=== PATIENT | female | born 1945 ===

== ENCOUNTER 2024-11-20 06:00 | Outpatient (CLI) | payer OTHER ==
[~2024-11-20] VITALS: Ht 160 cm; Wt 88.9 kg
[2024-11-20 11:09] VITALS: BP 150/82
[2024-11-20] MEDS ORDERED: COZAAR100 MG PO (11:10)
[2024-11-20] MEDS ORDERED: LIPITOR40 MG PO (11:10)
[2024-11-20] MEDS ORDERED: TOPROL XL25 M1 (11:11)
[2024-11-20 13:07] LABS: RH POSITIVE
== END 2024-11-20 06:01 | disposition home or self-care (01) ==
LOC: LAB 06:00 → SURH 11-27 07:00 → EDSTATUS 11-27 10:30
PROVIDERS: ATTEND Orthopaedic Surgery Sports Medicine
DX: M17.11 Unilateral primary osteoarthritis, right knee (principal)

== ENCOUNTER 2025-02-05 08:00 | Inpatient (IN) | payer OTHER ==
[~2025-02-05] VITALS: Ht 160 cm; Wt 90.7 kg
[~2025-02-05 08:00] MED LIST: COZAAR100 MG PO; LIPITOR40 MG PO; TOPROL XL25 M1
[2025-02-05 09:11] VITALS: BP 135/80
[2025-02-05 09:13] LABS: HEMATOCRIT 37.7 % (36.0-45.00); HEMOGLOBIN 12.5 g/dL (12.0-15.00); MEAN CELL VOLUME 91.7 fL (80.00-100.00); MEAN CORPUSCULAR HEMOGLOBIN 30.4 pg (27.00-32.0); MEAN CORPUSCULAR HGB CONC 33.2 g/dl (32.0-36.0); PLATELET COUNT 217 K/uL (150-450); RED BLOOD COUNT 4.11 M/uL (4.00-6.00); RED CELL DISTRIBUTION WIDTH 14.1 % (11.5-14.5)
[2025-02-05 09:15] LABS: URINE APPEARANCE Clear; URINE BILIRRUBIN Negative (NEGATIVE); URINE BLOOD Negative; URINE COLOR Yellow; URINE GLUCOSE Negative (NEGATIVE); URINE KETONE Negative (NEGATIVE); URINE LEUKOCYTE Negative; URINE NITRATE Negative; URINE PROTEIN Negative (NEGATIVE); URINE UROBILINOGEN 0.2 E.U./dl
[2025-02-05 09:16] LABS: URINE BACTERIA 659.7 uL (0.0-1933); URINE EPITHELIAL CELLS 52.8 uL (0.0-38.8); URINE RBC 4.1 uL (0.0-20.8); URINE WBC 3.1 uL (0.0-23.2)
[2025-02-05 09:30] LABS: URINE CAST 0.14 uL (0.0-1.40)
[2025-02-05 09:33] LABS: COVID-19 AG NEGATIVE (NEGATIVE)
[2025-02-05 10:06] LABS: BILIRUBIN TOTAL 0.58 mg/dL (0.3-1.2); CREATININE SERUM 0.85 mg/dL (0.55-1.02); GFR 64.68; GLOBULINA 3.3 G/DL (2.4-3.5); POTASSIUM 4.3 mEq/L (3.5-5.1); TOTAL PROTEIN 7.3 gm/dL (6.4-8.2)
[2025-02-05 10:29] LABS: INR 0.95; PARTIAL THROMBOPLASTIN TIME 23.9 SECONDS (22.0-34.0); PROTHROMBIN TIME 10.4 SECONDS (9.0-11.5)
[2025-02-05 11:52] LABS: RH POSITIVE
[2025-02-12] MEDS ORDERED: VANCOMYCIN HCL 1,000 MG VIAL ONE (09:00)
[2025-02-12] MEDS ORDERED: CEFAZOLIN SODIUM 1,000 MG VIAL ONE (09:01)
[2025-02-12] MEDS ORDERED: TRANEXAMIC ACID 100MG/1ML (1000MG) AMPUL IV ONE ×3 (09:01→10:45)
[2025-02-12] MEDS ORDERED: MORPHINE SULFATE 4 MG/ML VIAL IV ONE ×2 (10:45→15:30)
[2025-02-12] MEDS ORDERED: CEFAZOLIN SODIUM 1,000 MG VIAL IV ONE (10:45)
[2025-02-12] MEDS ORDERED: KETOROLAC TROMETHAMINE 60 MG VIAL IM ONE ×2 (10:45→11:06)
[2025-02-12] MEDS ORDERED: BUPIVACAINE HCL/MPF 0.5% 30ML VIAL ONE (11:06)
[2025-02-12] MEDS ORDERED: LIDOCAINE HCL 1%/EPINEPHRINE 20ML VIAL IJ ONE (11:06)
[2025-02-12] MEDS ORDERED: MORPHINE SULFATE 4 MG/ML CARTRIDGE IV PRN (13:15)
[2025-02-12] MEDS ORDERED: ONDANSETRON HCL 2 MG/ML VIAL IV PRN (13:15)
[2025-02-12] MEDS ORDERED: SODIUM CHLORIDE 0.45 % 1,000 ML IV SCH (13:15)
[2025-02-12] MEDS ORDERED: MORPHINE SULFATE 2 MG/ML CARTRIDGE IV ONE (13:15)
[2025-02-12 15:10] LABS: HEMATOCRIT 37.8 % (36.0-45.00); HEMOGLOBIN 12.7 g/dL (12.0-15.00); RED BLOOD COUNT 4.19 M/uL (4.00-6.00)
[2025-02-12] MEDS ORDERED: GENTAMICIN SULFATE 40 MG/ML VIAL ONE (16:29)
[2025-02-12] MEDS ORDERED: GENTAMICIN SULFATE 40 MG/ML VIAL IV SCH (17:00)
[2025-02-12] MEDS ORDERED: CEFAZOLIN SODIUM 1,000 MG VIAL IV SCH (18:00)
[2025-02-12 18:16] VITALS: BP 132/67; O2SAT 96
[2025-02-13 01:10] VITALS: BP 129/65; O2SAT 98
[2025-02-13 06:52] LABS: HEMATOCRIT 33.7 % (36.0-45.00); HEMOGLOBIN 11.2 g/dL (12.0-15.00); MEAN CELL VOLUME 91.7 fL (80.00-100.00); MEAN CORPUSCULAR HEMOGLOBIN 30.4 pg (27.00-32.0); MEAN CORPUSCULAR HGB CONC 33.1 g/dl (32.0-36.0); PLATELET COUNT 198 K/uL (150-450); RED BLOOD COUNT 3.67 M/uL (4.00-6.00); RED CELL DISTRIBUTION WIDTH 13.5 % (11.5-14.5)
[2025-02-13] MEDS ORDERED: ACETAMINOPHEN WITH CODEINE 1 UDTAB TABLET PO PRN (07:45)
[2025-02-13 08:00] VITALS: BP 126/78; O2SAT 98
[2025-02-13] MEDS ORDERED: METOPROLOL SUCCINATE 25 MG TAB.SR.24H PO SCH (09:00)
[2025-02-13] MEDS ORDERED: BACITRACIN 28.35 GM OINT.TUBE TOP SCH (09:00)
[2025-02-13] MEDS ORDERED: LOSARTAN POTASSIUM 100 MG TABLET PO SCH (09:00)
[2025-02-13] MEDS ORDERED: IRON FUM,PS/FOLIC/BCOMP,C NO.9 1 CAP CAPSULE PO SCH (09:00)
[2025-02-13] MEDS ORDERED: SENNA/DOCUSATE SODIUM 1 TAB TABLET PO SCH (09:00)
[2025-02-13] MEDS ORDERED: RIVAROXABAN 10 MG TAB PO SCH (09:00)
[2025-02-13 12:13] LABS: COVID-19 AG NEGATIVE (NEGATIVE)
[2025-02-13 16:00] VITALS: BP 160/80; O2SAT 97
[2025-02-14 00:56] VITALS: BP 151/76; O2SAT 100
[2025-02-14] MEDS ORDERED: INTEGRA PLUS C1 EACH PO (06:29)
[2025-02-14] MEDS ORDERED: Septra Ds Tablet PO (06:29)
[2025-02-14] MEDS ORDERED: XARELTO10 MG PO (06:29)
[2025-02-14] MEDS ORDERED: ACETAMINOPHEN-1 EAC2 PO (06:30)
[2025-02-14 08:00] LABS: HEMATOCRIT 33.3 % (36.0-45.00); MEAN CELL VOLUME 90.8 fL (80.00-100.00); MEAN CORPUSCULAR HEMOGLOBIN 30.1 pg (27.00-32.0); MEAN CORPUSCULAR HGB CONC 33.1 g/dl (32.0-36.0); PLATELET COUNT 196 K/uL (150-450); RED BLOOD COUNT 3.67 M/uL (4.00-6.00); RED CELL DISTRIBUTION WIDTH 13.6 % (11.5-14.5)
[2025-02-14] MEDS ORDERED: SULFAMETHOXAZOLE/TRIMETHOPRIM DS 1 TAB PO SCH (09:00)
[2025-02-14 14:55] VITALS: BP 171/92; O2SAT 96
[2025-02-14 16:00] VITALS: BP 136/82; O2SAT 96
== END 2025-02-14 17:42 | disposition home or self-care (01) | DRG 470 ==
LOC: SURH 02-12 05:36 → O/R 02-12 05:36 → SURH 02-12 08:00
PROVIDERS: ADMIT Orthopaedic Surgery Sports Medicine; ATTEND Orthopaedic Surgery Sports Medicine
PROC: 0SRC0J9 Replacement of Right Knee Joint with Synthetic Substitute, Cemented, Open Approach (ICD-10-PCS; principal; 2025-02-12 09:30)
DX: M17.11 Unilateral primary osteoarthritis, right knee (principal)